=== PATIENT | female | born 1950 | race Caucasian/White ===

== ENCOUNTER 2017-01-09 14:37 | Outpatient (CLI) | payer BC ==
[~2017-01-09] VITALS: Ht 165.1 cm; Wt 65.3 kg
[2017-01-09 14:46] VITALS: BP 153/80
[2017-01-09] MEDS ORDERED: HYDR25TA4 PO (14:53)
[2017-01-09] MEDS ORDERED: ASPI-586 PO (14:53)
[2017-01-09] MEDS ORDERED: SIMV20TA3 PO (14:53)
[2017-01-09] MEDS ORDERED: OMEP40CA36 PO (14:53)
[2017-01-09 15:19] LABS: BASOPHILS # (AUTO) 0.1 10^3/uL (0.0-0.1); BASOPHILS % (AUTO) 1 % (0-10); EOSINOPHILS # (AUTO) 0.1 10^3/uL (0.0-0.3); EOSINOPHILS % (AUTO) 1 % (0-10); LYMPHOCYTES # (AUTO) 2.2 X 10^3 (1.0-4.0); LYMPHOCYTES % (AUTO) 30 % (12-44); MEAN CORPUSCULAR HEMOGLOBIN 29 PG (25-34); MEAN CORPUSCULAR HGB CONC 33 G/DL (32-36); MEAN CORPUSCULAR VOLUME 88 FL (80-99); MEAN PLATELET VOLUME 10.9 FL (7.4-10.4); MONOCYTES # (AUTO) 0.6 X 10^3 (0.0-1.0); MONOCYTES % (AUTO) 9 % (0-12); NEUTROPHILS # (AUTO) 4.3 X 10^3 (1.8-7.8); NEUTROPHILS % (AUTO) 59 % (42-75); PLATELET COUNT 346 10^3/uL (130-400); RED BLOOD COUNT 4.69 10^6/uL (4.35-5.85); WHITE BLOOD COUNT 7.3 10^3/uL (4.3-11.0)
[2017-01-09 15:45] LABS: ANION GAP 10 MMOL/L (5-14); BLOOD UREA NITROGEN 11 MG/DL (7-18); BUN/CREATININE RATIO 17; CALCIUM 9.7 MG/DL (8.5-10.1); CARBON DIOXIDE 27 MMOL/L (21-32); CHLORIDE 103 MMOL/L (98-107); CREATININE SERUM 0.66 MG/DL (0.60-1.30); GFR ESTIMATED > 60; GLUCOSE 100 MG/DL (70-105); POTASSIUM 3.6 MMOL/L (3.6-5.0); SODIUM 140 MMOL/L (135-145)
== END 2017-01-09 15:10 | disposition home or self-care (01) ==
LOC: PREOP 14:37
PROVIDERS: ATTEND Surgery
DX: Z01.812 Encounter for preprocedural laboratory examination (principal); K43.9 Ventral hernia without obstruction or gangrene
CPT/HCPCS: 36415; 80048; 85025; 86850; 86900; 86901; 87081

== ENCOUNTER 2017-01-16 06:55 | Day surgery (SDC) | payer BC, OTHER ==
[~2017-01-16] VITALS: Ht 165.1 cm; Wt 65.3 kg
[~2017-01-16 06:55] MED LIST: ASPI-586 PO; HYDR25TA4 PO; OMEP40CA36 PO; SIMV20TA3 PO
[2017-01-16] MEDS ORDERED: FAMOTIDINE 20MG/2ML IV (PEPCID) IV ONE (07:15)
[2017-01-16] MEDS ORDERED: MIDAZOLAM 2 MG/2 ML (VERSED) VIAL IV ONE (07:15)
[2017-01-16] MEDS ORDERED: VASOPRESSIN INJECTION 20 UNIT/ML VIAL ONE (07:19)
[2017-01-16 07:20] VITALS: BP 151/70
[2017-01-16] MEDS ORDERED: LIDOCAINE/EPI 1%-1:200,000 (XYLOCAINE) 30 ML VIAL ONE (07:20)
[2017-01-16] MEDS ORDERED: NS (IVPB) 100 ML ONE (07:20)
[2017-01-16] MEDS: LACTATED RINGERS 1,000 ML IV PRN ×2 (07:29→11:27)
[2017-01-16] MEDS ORDERED: CLINDAMYCIN 900 MG/NS 50 ML IVPB IV ONE ×2 (07:30)
--- NOTE | 2017-01-16 08:58 | History & Physical-Surgical ---
HPO-Surgical History of Present Illness Chief Complaint: Vaginal bulg Diagnosis/Surgical Indication: incarcerated ventral hernia, grade 3 rectocele Procedure: LAPAROSCOPIC INCISIONAL/VENTRAL HERNIA REPAIR WITH MESH PLACEMENT, POSSIBLE OPEN, POSTERIOR COLPORHAPHY Date of Surgery: Jan 16, 2017 Weight (Pounds): 144 Weight (Ounces): 0.0 Height (Feet): 5 Height (Inches): 5.00 Allergies and Home Medications Allergies Coded Allergies: Penicillins (Verified Allergy, Unknown, HIVES, 01/09/17) Sulfa (Sulfonamide Antibiotics) (Verified Allergy, Unknown, HIVES, 01/09/17 ) Home Medications Aspirin 81 Mg Tablet.dr, 81 MG PO DAILY, (Reported) Hydrochlorothiazide 25 Mg Tablet, 25 MG PO DAILY, (Reported) Omeprazole 40 Mg Capsule.dr, 40 MG PO DAILY, (Reported) Simvastatin 20 Mg Tablet, 20 MG PO HS, (Reported) Past Hdymrtm-Qydzag-Shdqjt Hx Patient Social History Alcohol Use: Occasionally Uses Recreational Drug Use: No Smoking Status: Former Smoker Former Smoker, Quit: Jan 09, 2014 Recent Foreign Travel: No Contact w/other who traveled: No Recent Hopitalizations: No Recent Infectious Disease Expo: No Immunizations Up To Date Date of Pneumonia Vaccine: Jan 09, 2011 Seasonal Allergies Seasonal Allergies: Yes Surgeries Bladder Surgery, Hysterectomy Neurological TIA Reproductive System SCANNER OPERATOR History: Hysterectomy Gastrointestinal Abdominal Hernia Musculoskeletal Arthritis Exam Vital Signs Vital Signs 01/16/17 01/16/17 07:20 07:40 Temp 97.9 Pulse 64 Resp 18 B/P (MAP) 151/70 Pulse Ox 97 O2 Delivery Room Air Capillary Refill : General Appearance: Alert, Oriented X3 HEENT: Atraumatic Respiratory: Clear to Auscultation Cardiovascular: Regular Rate Abdominal: Normal Bowel Sounds Extremities: No Clubbing, No Cyanosis Skin: No Significant Lesion Neuro: Normal Speech Psych/Mental Status: Mental Status NL CRUZSARKIS Everton PAREKH Jan 16, 2017 08:58
[2017-01-16] MEDS ORDERED: DEXAMETHASONE 10 MG/ML (DECADRON) 1 ML VIAL ONE ×2 (09:02→10:43)
[2017-01-16] MEDS ORDERED: fentaNYL INJECTION 250 MCG/5 ML AMP ONE (09:02)
[2017-01-16] MEDS ORDERED: SEVOFLURANE (ULTANE) 15 ML INHAL SOLN ONE ×7 (09:02→12:24)
[2017-01-16] MEDS ORDERED: LACTATED RINGERS 1,000 ML IV ONE ×2 (09:02→10:43)
[2017-01-16] MEDS ORDERED: ROCURONIUM 50 MG/5 ML (ZEMURON) VIAL IV ONE (09:02)
[2017-01-16] MEDS ORDERED: MIDAZOLAM 2 MG/2 ML (VERSED) VIAL ONE ×2 (09:02→10:44)
[2017-01-16] MEDS ORDERED: ONDANSETRON 4 MG/2 ML (SDV) Z0FRAN ONE ×2 (09:02→10:43)
[2017-01-16] MEDS ORDERED: proPOfol 200 MG/20 ML (DIPRIVAN) VIAL IV ONE (09:02)
[2017-01-16] MEDS ORDERED: LIDOCAINE PF 2% 5 ML (XYLOCAINE) VIAL ONE (09:02)
--- NOTE | 2017-01-16 09:21 | Progress Note-Pre Operative ---
Pre-Operative Progress Note H&P Reviewed The H&P was reviewed, patient examined and no changes noted. Time Seen by Provider: 09:16 Date H&P Reviewed: Jan 16, 2017 Time H&P Reviewed: 09:18 Pre-Operative Diagnosis: Ventral hernia ANKUR VITAL DO Jan 16, 2017 09:21
[2017-01-16] MEDS ORDERED: ESTRADIOL VAGINAL CREAM 42.5 GM (ESTRACE) VG ONE (10:12)
[2017-01-16] MEDS ORDERED: fentaNYL INJECTION 100 MCG/2 ML AMP ONE ×2 (10:44→12:04)
[2017-01-16] MEDS ORDERED: morphine INJ 10 MG/ML 1ML (SYR OR VIAL) ONE (12:15)
[2017-01-16] MEDS ORDERED: CHLORASEPTIC LOZENGE MM PRN (13:00)
[2017-01-16] MEDS ORDERED: ANTACID SUSP 30 ML UDC (MYLANTA) PO PRN (13:00)
[2017-01-16] MEDS ORDERED: SIMETHICONE 80 MG (MYLICON) CHEW PO PRN (13:00)
[2017-01-16] MEDS ORDERED: DOCUSATE SODIUM 100 MG (COLACE) CAP PO PRN (13:00)
[2017-01-16] MEDS ORDERED: ZOLPIDEM 5 MG (AMBIEN) TAB PO PRN (13:00)
--- NOTE | 2017-01-16 13:03 | Progress Note-Post Operative ---
Post-Operative Progess Note Surgeon (s)/Music Copyist (s) Surgeon SARKIS ARROYO DO Music Copyist: none Pre-Operative Diagnosis Grade 3 Rectocele Post-Operative Diagnosis same Procedure & Operative Findings Date of Procedure 01/16/17 Procedure Performed/Findings Posterior colporraphy Fluids: 2L LR UOP: 700 mL clear EBL min Dr. Bell completed his portion of the procedure then I continued as planned. Patient was placed in dorsal lithotomy position, prepped and draped in the normal fashion. An upside down triangle is made on the perineum, the base of which is at 6 oclock going down the mucocutaneous junction. I remove the cutaneous tissues after injecting the subq with 20 mu vasopressin in 100 ml NS. This helps with hydrodissection and hemostasis. I then isolate the entire rectocele and make an eliptical incision around it to the depth of the submucosa. I then dissect bluntly the mucosa off of the submucosa, exposing the underlying tissue involved with in the rectocele. I then close the defect using 3-0 vicryl in a running locking fashion, this plicates the rectovaginal fascia and reduces the rectocele. After this is done I repair the perineum in the same fashion as a episiotomy after placing a 2-0 vicryl crown stitch which re-enforces the perineal body. A qiu catheter from the previous procedure is left in place. The vagina is then packed with premarin soak vaginal packing. Patient tolerated the procedure well and is taken to recovery in stable condition. Lap and sponge count is correct/instrument count is correct as well. Anesthesia Type GETA Estimated Blood Loss Estimated blood loss (mL): min Specimens/Packing Specimens Removed none SARKIS ARROYO DO Jan 16, 2017 13:03
[2017-01-16] MEDS ORDERED: HYDROmorphone (DILAUDID) 2 MG/ML VIAL IVP PRN (13:15)
[2017-01-16] MEDS ORDERED: ONDANSETRON 4 MG/2 ML (SDV) Z0FRAN IVP PRN (13:15)
[2017-01-16] MEDS: morphine INJ 10 MG/ML 1ML (SYR OR VIAL) IVP PRN ×2 (13:16→13:20)
[2017-01-16] MEDS: KETOROLAC 30 MG/ML VIAL IV PRN ×2 (13:36→19:59)
--- NOTE | 2017-01-16 14:14 | Progress Note-Post Operative ---
Post-Operative Progess Note Surgeon (s)/Supervisor Fabrication (s) Surgeon ANKUR VITAL DO Supervisor Fabrication: Choco Pre-Operative Diagnosis Incisional/Vental hernia incarcerated Post-Operative Diagnosis Same, plus small UH Procedure & Operative Findings Date of Procedure 01/16/17 Procedure Performed/Findings Lap Ventral/Inc herniarraphy with mesh placement Anesthesia Type GET Estimated Blood Loss Estimated blood loss (mL): scant Specimens/Packing Specimens Removed hernia contents ANKUR VITAL DO Jan 16, 2017 14:14
[2017-01-16 14:20] VITALS: BP 123/65
[2017-01-16] MEDS: HYDROcodone/APAP 7.5 MG/325 MG (LORTAB, LORCET PLUS) TABLET PO PRN (14:52)
[2017-01-16] MEDS ORDERED: PATIENT MAY USE OWN MEDS, ALL MC SCH (16:15)
[2017-01-16 17:37] VITALS: BP 126/72
[2017-01-16] MEDS: LACTATED RINGERS 1,000 ML IV SCH (19:46)
[2017-01-16] MEDS: ONDANSETRON 4 MG/2 ML (SDV) Z0FRAN IV PRN (20:30)
[2017-01-16 20:40] VITALS: BP 113/63
[2017-01-16] MEDS ORDERED: SIMvastatin 40 MG (ZOCOR) TAB PO SCH (21:00)
[2017-01-16] MEDS ORDERED: SIMvastatin 20 MG (ZOCOR) TAB PO SCH (21:00)
[2017-01-17 00:42] VITALS: BP 146/82
[2017-01-17] MEDS: ONDANSETRON 4 MG/2 ML (SDV) Z0FRAN IV PRN ×2 (00:52→09:52)
[2017-01-17] MEDS: LACTATED RINGERS 1,000 ML IV SCH ×2 (03:30→08:26)
--- NOTE | 2017-01-17 04:16 | OPERATIVE REPORT ---
DATE OF SERVICE: 01/16/2017 PREOPERATIVE DIAGNOSES: Incisional ventral hernia. POSTOPERATIVE DIAGNOSES: 1. Incarcerated incisional ventral hernia. 2. Small umbilical hernia, also incarcerated. PROCEDURE: Laparoscopic ventral herniorrhaphy with mesh placement. SURGEON: Ankur Bell DO. HUMID SYSTEM OPERATOR: Geoff Wilhelm DO. ANESTHESIA: General endotracheal tube. SPECIMEN: Hernia contents. BLOOD LOSS: Scant. FLUIDS: Per anesthesia. POSTOPERATIVE CONDITION: Stable. INDICATION FOR PROCEDURE: The patient is a 66-year-old female who has been having some abdominal pain, diagnosed with an incisional ventral hernia and she wanted to get this repaired at the same time she another procedure performed by the FINISH MACHINE TENDER surgeon. FINDINGS: The patient had a small, incarcerated incisional ventral hernia. Also found to have a small incarcerated umbilical hernia repaired at the same time. PROCEDURE NOTE: After informed consent was obtained, the patient was brought to the operating room, placed on the table in supine position. She was sterilely prepped and draped in normal fashion. Local lidocaine was used to infiltrate the skin in left upper quadrant. made an incision with a #11 blade, carried down through the skin into the subcutaneous tissue, then deepened down to the subcutaneous tissue with Bovie electrocautery down to the fascia. Fascia incised with Bovie electrocautery then bluntly spread this apart and then spread the muscle apart with the posterior fascia and then bluntly entered the abdomen and placed an 11 mm trocar port under direct visualization. Created pneumoperitoneum and then placed 2 more ports in a normal fashion using local lidocaine, 11 blade for stab incision and the VersaStep system, all done under direct visualization, one in the left lower quadrant, one in the right mid abdomen at about the height of the umbilicus. Upon entry noted fat stuck up into the small incisional hernia, took a picture of this and then carefully with a LigaSure started coming across the fat clamping, coagulating and transecting and then pulling this out of the hernia the small fascial defect. Once this was freed up then freed up some of the rest of the preperitoneal fat until I created a good space for our mesh. I also took down the falciform ligament just a little bit. Once we had freed this up, I elected to use a 15 x 10 cm Echo Bard mesh. Placed this into the abdomen, made a small stab incision above the umbilicus, used the Derek-Maksim to grab the catheter pulled this up through the abdominal wall and then blew up the balloon and held this in place and then started tacking with a Securestrap. Tacked it at 12 o'clock, 9 o'clock, 6 o'clock and 3 o'clock positions and in between at about 1 cm spots to hold this up in place. I pulled the balloon out and then tacked a few more in the middle using all 25 Securestrap absorbable vera. Mesh appeared to be in good place, I let out some of the pneumoperitoneum and the mesh still continued to stay pretty flat, just a few ripples. It looked good at this point. I then removed all ports under direct visualization and allowed the pneumoperitoneum to escape. Closed the left upper quadrant incision closing the peritoneum with a 3-0 Vicryl fbreim-fq-czgnp suture then closed the anterior fascia with an 0 Vicryl tedbqk-rx-bvcwp suture. Copiously irrigated the incision with normal saline and then closed the 2 small 5 mm incisions with a single interrupted 4-0 undyed Monocryl subcuticular stitch. Closed the left upper quadrant incision with 3 interrupted 4-0 undyed Monocryl subcuticular stitches. Area was cleaned and dried and Dermabond placed. The patient was kept in the room for the FINISH MACHINE TENDER surgeon's case. She tolerated the procedure well. Sponge and needle counts correct at the end of the case. Dr. Wilhelm assisted in this case in identifying anatomy, holding anatomy out of the way, making incisions as well as closing the incisions. Job ID: [id number] DocumentID: [id number] Dictated Date: 01/16/2017 14:18:52 Instrument Designer Date: 01/17/2017 04:15:33 Dictated By: ANKUR BELL DO
[2017-01-17 06:15] VITALS: BP 114/63
[2017-01-17] MEDS ORDERED: IBUPROFEN 600 MG (MOTRIN) TAB PO PRN (07:00)
[2017-01-17 08:10] VITALS: BP 116/69
[2017-01-17] MEDS: OMEPRAZOLE 40 MG CAPSULE PO SCH ×2 (08:17→11:20)
[2017-01-17] MEDS ORDERED: HYDROCHLOROTHIAZIDE 25 MG (HCTZ) TAB PO SCH (09:00)
[2017-01-17] MEDS ORDERED: FAMOTIDINE 20MG/2ML IV (PEPCID) IVP ONE (09:45)
--- NOTE | 2017-01-17 09:54 | Discharge Inst-Women's Service ---
Discharge Inst-Women's Serv Depart Medication/Instructions New, Converted or Re-Newed RX: RX on Chart Consults/Follow Up Additional Follow Up: Yes Orders/Referrals Dr. Arroyo in 4-5 weeks Activity Activity: Activity as Tolerated Driving Instructions: No Driving for 1 Week NO SMOKING: NO SMOKING Nothing Inside Vagina: No Douching, No [place], No Tampons Diet Discharge Diet: No Restrictions Symptoms to Report to : Bleeding Excessive, Pain Increased, Fever Over 101 Degrees F, Vaginal Bleeding Increase, Questions/Concerns For Any Problems or Questions: Contact Your Physician Skin/Wound Care Bathing Instructions: Shower (x 2 weeks) SARKIS ARROYO DO Jan 17, 2017 9:54 am
[2017-01-17] MEDS ORDERED: IBUP-1773 PO (09:55)
[2017-01-17] MEDS ORDERED: HYDR-3816 PO (09:55)
[2017-01-17] MEDS ORDERED: DOCU100C37 PO (09:55)
[2017-01-17] MEDS ORDERED: SIME80TA16 PO (09:55)
[2017-01-17] MEDS: HYDROcodone/APAP 7.5 MG/325 MG (LORTAB, LORCET PLUS) TABLET PO PRN (10:34)
== END 2017-01-17 12:15 | disposition home or self-care (01) ==
LOC: SDC 06:55 → LDRP 14:30 → SDC 01-17 12:15
PROVIDERS: ATTEND Surgery
DX: K43.0 Incisional hernia with obstruction, without gangrene (principal); K42.0 Umbilical hernia with obstruction, without gangrene; N81.6 Rectocele; K21.9 Gastro-esophageal reflux disease without esophagitis; Z86.73 Personal history of transient ischemic attack (TIA), and cerebral infarction without residual deficits; Z87.891 Personal history of nicotine dependence; Z79.82 Long term (current) use of aspirin; Z79.899 Other long term (current) drug therapy
CPT/HCPCS: 94664

== ENCOUNTER → 2018-08-06 | Outpatient (CLI) | payer MEDICARE, BC ==
[~2018-08-06] MED LIST changes: +DOCU100C37 PO; +HYDR-34 PO; +IBUP-1773 PO; +SIME80TA16 PO
--- NOTE | 2018-08-06 19:53 | Diagnostic Imaging Report ---
INDICATION: Multinodular goiter. TECHNIQUE: Grayscale sonographic images of the thyroid gland. CORRELATION STUDY: There are no current prior studies for comparison purposes. FINDINGS: RIGHT LOBE: 4.2 x 2.0 x 1.4 cm. Heterogeneous echotexture throughout the right lobe. There is a hypoechoic nodule but it appears to be solid with a few punctate calcifications within the mid aspect, 1.0 x 0.5 x 0.8 cm. Hypoechoic nodule in right lobe is 4 x 3 x 4 mm. An additional solid-appearing nodule is present, measuring 7 x 6 x 7 mm. LEFT LOBE: 4.1 x 2.0 x 1.2 cm cm. Diffusely heterogeneous echotexture is present. Solid nodule in left lobe is present, measuring 10 x 5 x 8 mm. Additional hypoechoic nodule 9 x 7 x 6 mm. Isthmus is heterogeneous in echotexture. IMPRESSION: Borderline enlarged thyroid gland with heterogeneous echotexture containing multiple nodules. Given the multiplicity, favors probable multinodular goiter. A definitive dominant asymmetric mass is not suggest at this time. Continued periodic survey followup assessment is, however, recommended. (Normal gland size: 4-5 x 2 x 2 cm) Dictated by: Dictated on workstation # [id number]
== END ==
LOC: RAD FS 16:36
PROVIDERS: ATTEND Otolaryngology Otolaryngology/Facial Plastic Surgery
DX: E04.2 Nontoxic multinodular goiter (principal)
CPT/HCPCS: 76536

== ENCOUNTER 2018-11-02 05:36 | Outpatient (CLI) | payer MEDICARE, BC ==
[~2018-11-02] VITALS: Ht 165.1 cm; Wt 65.3 kg
== END 2018-11-02 10:46 | disposition home or self-care (01) ==
LOC: PREOP 05:36
PROVIDERS: ATTEND Surgery
DX: Z01.818 Encounter for other preprocedural examination (principal)

== ENCOUNTER 2018-11-09 06:43 | Day surgery (SDC) | payer BC, MEDICARE ==
[~2018-11-09] VITALS: Ht 165.1 cm; Wt 65.3 kg
--- OUTSIDE RECORDS SUMMARY | 2018-11-09 06:46 | XMS REPORT | Continuity of Care Document ---
Author Organization Unknown Address Unknown Allergies Active Description Code Type Severity Reaction Onset Reported/Identified Relationship to Patient Clinical Status Yes Penicillins [id number] Drug Allergy Unknown HIVES 01/09/2017 Yes Sulfa (Sulfonamide Antibiotics) [id number] Drug Allergy Unknown HIVES 01/09/2017 Yes Penicillins [id number] Drug Allergy Severe HIVES, CONFUSIO 11/02/2018 Yes Sulfa (Sulfonamide Antibiotics) [id number] Drug Allergy Mild HIVES 11/02/2018 Medications There is no data. Problems Date Dx Coded Attending Type Code Diagnosis Diagnosed By 01/09/2017 ANKUR VITAL DO, Ot K43.9 VENTRAL HERNIA WITHOUT OBSTRUCTION OR GA 01/09/2017 ANKUR VITAL DO, Ot Z01.812 ENCOUNTER FOR PREPROCEDURAL LABORATORY E 01/10/2017 ANKUR VITAL DO, Ot K43.9 VENTRAL HERNIA WITHOUT OBSTRUCTION OR GA 01/10/2017 ANKUR VITAL DO, Ot Z01.812 ENCOUNTER FOR PREPROCEDURAL LABORATORY E 01/17/2017 ANKUR VITAL DO, Ot K21.9 GASTRO-ESOPHAGEAL REFLUX DISEASE WITHOUT 01/17/2017 ANKUR VITAL DO, Ot K42.0 UMBILICAL HERNIA WITH OBSTRUCTION, WITHO 01/17/2017 ANKUR VITAL DO, Ot K43.0 INCISIONAL HERNIA WITH OBSTRUCTION, WITH 01/17/2017 ANKUR VITAL DO Ot N81.6 RECTOCELE 01/17/2017 ANKUR VITAL DO, Ot Z79.82 MCC (CURRENT) USE OF ASPIRIN 01/17/2017 ANKUR VITAL DO, Ot Z79.899 OTHER MCC (CURRENT) DRUG THERAPY 01/17/2017 ANKUR VITAL DO, Ot Z86.73 PRSNL HX OF TIA (TIA), AND CEREB INFRC W 01/17/2017 ANKUR VITAL DO, Ot Z87.891 PERSONAL HISTORY OF NICOTINE DEPENDENCE 01/22/2017 DELMAN DO, ANKUR B Ot K21.9 GASTRO-ESOPHAGEAL REFLUX DISEASE WITHOUT 01/22/2017 DELMAN DO, ANKUR B Ot K42.0 UMBILICAL HERNIA WITH OBSTRUCTION, WITHO 01/22/2017 DELMAN DO, ANKUR B Ot K43.0 INCISIONAL HERNIA WITH OBSTRUCTION, WITH 01/22/2017 DELMAN DO, ANKUR B Ot N81.6 RECTOCELE 01/22/2017 ZAHRAA PAREKH ANKUR B Ot Z79.82 SUPERINTENDENT LAUNDRY (CURRENT) USE OF ASPIRIN 01/22/2017 ZAHRAA DO ANKUR B Ot Z79.899 OTHER SUPERINTENDENT LAUNDRY (CURRENT) DRUG THERAPY 01/22/2017 DELBOUCHRA DO, ANKUR B Ot Z86.73 PRSNL HX OF TIA (TIA), AND CEREB INFRC W 01/22/2017 AYDIN VITAL DOIC B Ot Z87.891 PERSONAL HISTORY OF NICOTINE DEPENDENCE 01/24/2017 NUHABOUCHRA DO ANKUR B Ot K21.9 GASTRO-ESOPHAGEAL REFLUX DISEASE WITHOUT 01/24/2017 DELMAN DO, ANKUR B Ot K42.0 UMBILICAL HERNIA WITH OBSTRUCTION, WITHO 01/24/2017 ZAHRAA DO, ANKUR B Ot K43.0 INCISIONAL HERNIA WITH OBSTRUCTION, WITH 01/24/2017 NUHABOUCHRA DO, ANKUR B Ot N81.6 RECTOCELE 01/24/2017 ZAHRAA PAREKH ANKUR B Ot Z79.82 SUPERINTENDENT LAUNDRY (CURRENT) USE OF ASPIRIN 01/24/2017 ZAHRAA PAREKH ANKUR B Ot Z79.899 OTHER SUPERINTENDENT LAUNDRY (CURRENT) DRUG THERAPY 01/24/2017 AYDIN VITAL DOIC B Ot Z86.73 PRSNL HX OF TIA (TIA), AND CEREB INFRC W 01/24/2017 ANKUR VITAL DO B Ot Z87.891 PERSONAL HISTORY OF NICOTINE DEPENDENCE 08/07/2018 ZEE BARRERA, SARKIS P Ot E04.2 NONTOXIC MULTINODULAR GOITER 11/02/2018 SARKIS KOCH MD Ot E04.2 NONTOXIC MULTINODULAR GOITER 11/02/2018 ANKUR VITAL DO B Ot Z01.818 ENCOUNTER FOR OTHER PREPROCEDURAL EXAMIN 11/05/2018 SARKIS KOCH MD Ot E04.2 NONTOXIC MULTINODULAR GOITER Procedures There is no data. Results Test Result Range Complete blood count (CBC) with automated white blood cell (WBC) differential - 01/09/17 15:05 Blood leukocytes automated count (number/volume) 7.3 10*3/uL 4.3-11.0 Blood erythrocytes automated count (number/volume) 4.69 10*6/uL 4.35-5.85 Venous blood hemoglobin measurement (mass/volume) 13.8 g/dL 11.5-16.0 Blood hematocrit (volume fraction) 41 % 35-52 Automated erythrocyte mean corpuscular volume 88 [foz_us] 80-99 Automated erythrocyte mean corpuscular hemoglobin (mass per erythrocyte) 29 pg 25-34 Automated erythrocyte mean corpuscular hemoglobin concentration measurement (mass/volume) 33 g/dL 32-36 Automated erythrocyte distribution width ratio 13.0 % 10.0- 14.5 Automated blood platelet count (count/volume) 346 10*3/uL 130-400 Automated blood platelet mean volume measurement 10.9 [foz_us] 7.4-10.4 Automated blood neutrophils/100 leukocytes 59 % 42-75 Automated blood lymphocytes/100 leukocytes 30 % 12-44 Blood monocytes/100 leukocytes 9 % 0-12 Automated blood eosinophils/100 leukocytes 1 % 0-10 Automated blood basophils/100 leukocytes 1 % 0-10 Blood neutrophils automated count (number/volume) 4.3 10*3 1.8-7.8 Blood lymphocytes automated count (number/volume) 2.2 10*3 1.0-4.0 Blood monocytes automated count (number/volume) 0.6 10*3 0.0- 1.0 Automated eosinophil count 0.1 10*3/uL 0.0-0.3 Automated blood basophil count (count/volume) 0.1 10*3/uL 0.0-0.1 Whole blood basic metabolic panel - 01/09/17 15:05 Serum or plasma sodium measurement (moles/volume) 140 mmol/L 135-145 Serum or plasma potassium measurement (moles/volume) 3.6 mmol/L 3.6-5.0 Serum or plasma chloride measurement (moles/volume) 103 mmol/L 98-107 Carbon dioxide 27 mmol/L 21-32 Serum or plasma anion gap determination (moles/volume) 10 mmol/L 5-14 Serum or plasma urea nitrogen measurement (mass/volume) 11 mg/dL 7-18 Serum or plasma creatinine measurement (mass/volume) 0.66 mg/dL 0.60-1.30 Serum or plasma urea nitrogen/creatinine mass ratio 17 NRG Serum or plasma creatinine measurement with calculation of estimated glomerular filtration rate > NRG Serum or plasma glucose measurement (mass/volume) 100 mg/dL 70-105 Serum or plasma calcium measurement (mass/volume) 9.7 mg/dL 8.5-10.1 Blood type T Indirect antibody screen panel - 01/09/17 15:05 ABO+Rh group AP NRG Transfusion band number TNP NRG Blood group antibody screen NEGATIVE NRG Methicillin resistant Staphylococcus aureus (MRSA) screening culture - 01/09/17 15:05 Methicillin resistant Staphylococcus aureus (MRSA) screening culture NEG NRG Blood type T Indirect antibody screen panel - 01/16/17 07:19 ABO+Rh group AP NRG Transfusion band number [id number] NRG Blood group antibody screen NEGATIVE NRG TSH w/ FREE T4 - 08/06/18 16:23 TSH 1.88 mIU/L 0.40-4.50 T4, FREE 1.2 ng/dL 0.8-1.8 LIPID PANEL - 10/16/18 08:45 CHOLESTEROL, TOTAL 165 mg/dL <200 HDL CHOLESTEROL 64 mg/dL >50 TRIGLYCERIDES 93 mg/dL <150 LDL-CHOLESTEROL 82 mg/dL (calc) NRG CHOL/HDLC RATIO 2.6 (calc) <5.0 NON HDL CHOLESTEROL 101 mg/dL (calc) <130 CMP - 10/16/18 08:45 GLUCOSE 87 mg/dL 65-99 UREA NITROGEN (BUN) 9 mg/dL 7-25 CREATININE 0.60 mg/dL 0.50-0.99 eGFR NON-AFR. [place] 95 mL/min/1.73m2 > OR=60 eGFR 110 mL/min/1.73m2 > OR=60 BUN/CREATININE RATIO NOT APPLICABLE (calc) 6-22 SODIUM 142 mmol/L 135-146 POTASSIUM 4.2 mmol/L 3.5-5.3 CHLORIDE 103 mmol/L 98-110 CARBON DIOXIDE 29 mmol/L 20-32 CALCIUM 9.9 mg/dL 8.6-10.4 PROTEIN, TOTAL 6.5 g/dL 6.1-8.1 ALBUMIN 4.3 g/dL 3.6-5.1 GLOBULIN 2.2 g/dL (calc) 1.9-3.7 ALBUMIN/GLOBULIN RATIO 2.0 (calc) 1.0-2.5 BILIRUBIN, TOTAL 0.4 mg/dL 0.2-1.2 ALKALINE PHOSPHATASE 87 U/L 33-130 AST 16 U/L 10-35 ALT 16 U/L 6-29 CBC w/MANUAL DIFF - 10/16/18 08:45 WHITE BLOOD CELL COUNT 6.8 Thousand/uL 3.8-10.8 RED BLOOD CELL COUNT 4.74 Million/uL 3.80-5.10 HEMOGLOBIN 13.8 g/dL 11.7-15.5 HEMATOCRIT 42.2 % 35.0-45.0 MCV 89.0 fL 80.0-100.0 MCH 29.1 pg 27.0-33.0 MCHC 32.7 g/dL 32.0-36.0 RDW 12.7 % 11.0-15.0 PLATELET COUNT 363 Thousand/uL 140-400 MPV 11.1 fL 7.5-12.5 ABSOLUTE NEUTROPHILS 3135 cells/uL 5992-2391 ABSOLUTE MONOCYTES 537 cells/uL 200-950 ABSOLUTE EOSINOPHILS 231 cells/uL 15-500 ABSOLUTE BASOPHILS 150 cells/uL 0-200 NEUTROPHILS 46.1 % NRG LYMPHOCYTES 39.3 % NRG MONOCYTES 7.9 % NRG EOSINOPHILS 3.4 % NRG BASOPHILS 2.2 % NRG ABSOLUTE BAND NEUTROPHILS 75 cells/uL 0-750 ABSOLUTE LYMPHOCYTES 2672 cells/uL 850-3900 BAND NEUTROPHILS 1.1 % NRG PLATELET ESTIMATION ADEQUATE ADEQUATE COMMENT(S) NRG Encounters ACCT No. Visit Date/Time Discharge Status Pt. Type Provider Facility Loc./Unit Complaint [id number] 10/22/2018 15:30:00 10/22/2018 23:59:59 CLS Outpatient [facility] [id number] 10/16/2018 09:00:00 Document Registration [id number] 08/06/2018 16:15:00 Document Registration [id number] 11/02/2018 05:36:00 11/02/2018 10:46:00 DIS Outpatient ANKUR VITAL DO [facility] PREOP COLONOSCOPY/EGD [id number] 08/06/2018 16:36:00 08/06/2018 23:59:59 CLS Outpatient ZEE BARRERA, SARKIS Samaniego [facility] RAD FS MULTI NODULAR GOITER [id number] 01/16/2017 06:55:00 01/17/2017 12:15:00 DIS Outpatient ANKUR VITAL DO [facility] VENTRAL HERNIA, GRADE 3 PORLAPSE [id number] 01/09/2017 14:37:00 01/09/2017 15:10:00 DIS Outpatient ANKUR VITAL DO [facility] PREOP LAPARSCOPIC VENTRAL HERNIA REPAIR [id number] 11/09/2018 08:00:00 PEN Preadmit ANKUR VITAL DO [facility] ENDO SCREENING/REFLUX
[2018-11-09] MEDS ORDERED: LACTATED RINGERS 1,000 ML IV ONE (07:01)
[2018-11-09] MEDS ORDERED: PROPOFOL INJECTION 50 ML IV ONE (07:12)
[2018-11-09] MEDS ORDERED: MIDAZOLAM 2 MG/2 ML (VERSED) VIAL ONE (07:12)
[2018-11-09] MEDS ORDERED: LACTATED RINGERS 1,000 ML IV STA (07:25)
[2018-11-09 07:30] VITALS: BP 153/88
[2018-11-09] MEDS ORDERED: HURRICAINE EXT TUBE (BENZOCAINE) XX PRN (07:30)
--- NOTE | 2018-11-09 08:23 | Progress Note-Pre Operative ---
Pre-Operative Progress Note H&P Reviewed The H&P was reviewed, patient examined and no changes noted. Time Seen by Provider: 08:15 Date H&P Reviewed: Nov 09, 2018 Time H&P Reviewed: 08:16 Pre-Operative Diagnosis: Chronic Gastritis, Hx of Polyps ANKUR VITAL DO Nov 09, 2018 08:23
[2018-11-09 09:15] VITALS: BP 141/69
[2018-11-09] MEDS ORDERED: HURRICAINE EXT TUBE (BENZOCAINE) ONE (09:24)
--- NOTE | 2018-11-09 09:33 | Progress Note-Post Operative ---
Post-Operative Progess Note Surgeon (s)/Steno Typist (s) Surgeon ANKUR IVTAL DO Steno Typist: none Pre-Operative Diagnosis Chronic Gastritis, Hx of Polyps Post-Operative Diagnosis Gastritis Hiatal Hernia Sigmoid colon polyps Diverticula Internal hemorrhoids Procedure & Operative Findings Date of Procedure 11/09/18 Procedure Performed/Findings EGD with bx Colon with snare Colon with cold bx Anesthesia Type IV sedation by COMMERCIAL PROJECT MANAGER Estimated Blood Loss Estimated blood loss (mL): scant Specimens/Packing Specimens Removed Antral bx body of stomach bx GE jxn bx Sigmoid colon polyp x 2 ANKUR VITAL DO Nov 09, 2018 09:33
--- NOTE | 2018-11-09 09:35 | Endoscopy Discharge Instruct ---
Endo Procedure/Findings Findings 1.: Hiatal Hernia, Gastritis 2.: Polyp 3.: Diverticulosis 4.: Internal Hemorrhoids Discharge Instructions - Activity: You might feel a little sleepy until tomorrow. This is due to the medicine you received to relax you. Until tomorrow, you should: NOT drive a car, operate machinery or power tools. NOT drink any alcoholic beverages. NOT make any important decisions or sign importortant papers. Do not return to work until tomorrow, unless otherwise instructed. Resume previous activities tomorrow. Diet: Start by taking liquids. If you tolerate liquids, advance to solid food. make an appointment for one week Instructions: 1.: Colonscopy in 5 years, EGD in 3 years Notify Physician - If you experience excessive bleeding, unusual abdominal pain, fever, or chest pain, contact your doctor immediately. Follow-Up: - I have received and understand the above instructions and will call my doctor if I have any further questions. Patient Signature Date Nurse Signature Other (Relationship) ANKUR VITAL DO Nov 09, 2018 09:35
[2018-11-09 09:45] VITALS: BP 171/87
[2018-11-09 10:02] VITALS: BP 171/87
--- NOTE | 2018-11-09 14:54 | Anesthesia-General Post-Op ---
MAC Patient Condition Mental Status/LOC: Same as Preop Cardiovascular: Satisfactory Nausea/Vomiting: Absent Respiratory: Satisfactory Pain: Controlled Complications: Absent Post Op Complications Complications None Follow Up Care/Instructions Patient Instructions None needed. Anesthesiology Discharge Order Discharge Order Patient is doing well, no complaints, stable vital signs, no apparent adverse anesthesia problems. No complications reported per nursing. CAROLINA VILLEGAS CRNA Nov 09, 2018 14:54
--- NOTE | 2018-11-09 21:06 | OPERATIVE REPORT ---
DATE OF SERVICE: 11/09/2018 PREOPERATIVE DIAGNOSES: Chronic gastritis, history of polyps, colon polyps. POSTOPERATIVE DIAGNOSES: 1. Gastritis. 2. Hiatal hernia. 3. Sigmoid colon polyps. 4. Diverticula. 5. Internal hemorrhoids. PROCEDURE: 1. EGD with biopsy. 2. Colonoscopy with snare polypectomy. 3. Colonoscopy with cold biopsy. SURGEON: Carlos Bell DO INDUSTRIAL TRAINING SPECIALIST: None. ANESTHESIA: IV sedation by THERAPIST SPEECH. SPECIMEN: 1. One biopsy from the antrum, one biopsy from the body of stomach and one biopsy from the GE junction. 2. Sigmoid colon polyp x2. BLOOD LOSS: Scant. FLUIDS: Per anesthesia. POSTOPERATIVE CONDITION: Stable. INDICATION FOR PROCEDURE: The patient is a 68-year-old female who is having some chronic gastritis had a history of polyps and needs a workup for the gastritis and a repeat surveillance colonoscopy. FINDINGS: The patient had some gastritis. She also had noted a rather large hiatal hernia and then in the sigmoid colon saw one flat polyp and one large polyp also saw some diverticula and some internal hemorrhoids. PROCEDURE NOTE: After informed consent was obtained, the patient was brought to the endoscopy suite, placed in the bed in the left lateral decubitus position. She was administered IV sedation by the THERAPIST SPEECH who then monitored her vitals the entire time, heart rate, blood pressure, pulse ox and the scope was inserted down the mouth through the esophagus into the stomach, noted what looked like hiatal hernia and possibly some GE junction changes. Pushed to the antrum and through the pylorus, first and second portion of duodenum looked fine. Took a picture of this and then pulled back into the antrum, did a biopsy of the antrum as well as then did a biopsy of the body of the stomach, retroflexed the scope, saw large hiatal hernia, took a picture of this. Pulled into the esophagus and then did a biopsy of the GE junction then at this point pulled the scope up the esophagus and out the mouth. Switched scopes, switched gloves, went down below and started the colonoscopy. Pushed the scope in all the way to 150 cm, able to get to the cecum, took a picture of appendiceal orifice, noted the ileocecal valve and then slowly withdrew the scope insufflating to look circumferentially at the sweeney looking at the cecum, up the ascending colon to the hepatic flexure, then down the transverse colon, the splenic flexure, into the descending colon then into the sigmoid. In the sigmoid, saw small flat polyp, I elected to do a cold biopsy of this. Pulled back another couple inches and saw a large polyp. Wanted to remove this completely so used a snare polypectomy to remove this. Once this was removed, then continued down again saw diverticula in the sigmoid colon, took picture of these and then into the rectum, retroflexed in the rectal vault, saw some minimal internal hemorrhoids, took pictures and then removed the scope. The patient tolerated the procedure and she recovered in endoscopy suite. Job ID: [id number] DocumentID: [id number] Dictated Date: 11/09/2018 15:05:16 Lining Repairer Date: 11/09/2018 21:05:48 Dictated By: DO MELQUIADES MILES
== END 2018-11-09 09:55 | disposition home or self-care (01) ==
LOC: ENDO 06:43
PROVIDERS: ATTEND Surgery
DX: Z12.11 Encounter for screening for malignant neoplasm of colon (principal); D12.5 Benign neoplasm of sigmoid colon; K63.89 Other specified diseases of intestine; K29.50 Unspecified chronic gastritis without bleeding; K44.9 Diaphragmatic hernia without obstruction or gangrene; K57.30 Diverticulosis of large intestine without perforation or abscess without bleeding; K64.8 Other hemorrhoids; R79.1 Abnormal coagulation profile; I10 Essential (primary) hypertension; E78.00 Pure hypercholesterolemia, unspecified; Z87.891 Personal history of nicotine dependence; E78.5 Hyperlipidemia, unspecified; K21.9 Gastro-esophageal reflux disease without esophagitis; Z86.73 Personal history of transient ischemic attack (TIA), and cerebral infarction without residual deficits; Z79.82 Long term (current) use of aspirin; Z79.899 Other long term (current) drug therapy; Z79.01 Long term (current) use of anticoagulants; Z88.0 Allergy status to penicillin; Z88.2 Allergy status to sulfonamides

== ENCOUNTER → 2018-11-19 | Outpatient (CLI) | payer BC, MEDICARE ==
[2018-11-19 15:50] LABS: BILIRUBIN,URINE NEGATIVE (NEGATIVE); CLARITY,URINE CLEAR; COLOR,URINE YELLOW; GLUCOSE, URINE (UA) NEGATIVE (NEGATIVE); KETONES,URINE NEGATIVE (NEGATIVE); LEUKOCYTE ESTERASE ,URINE NEGATIVE (NEGATIVE); NITRITE,URINE NEGATIVE (NEGATIVE); PH,URINE 7 (5-9); PROTEIN,URINE NEGATIVE (NEGATIVE); UROBILINOGEN,URINE NORMAL (NORMAL)
[2018-11-19 16:03] LABS: BACTERIA,URINE NEGATIVE /HPF
== END ==
LOC: LAB 15:36
PROVIDERS: ATTEND Surgery
DX: R35.0 Frequency of micturition (principal)
CPT/HCPCS: 81000

== ENCOUNTER 2020-10-30 05:38 | Outpatient (CLI) | payer BC, MEDICARE ==
[~2020-10-30] VITALS: Ht 165.1 cm; Wt 65.8 kg
[~2020-10-30 05:38] MED LIST changes: +OMEP40CA27 PO; -OMEP40CA36 PO; +SIMV20TA26 PO; -SIMV20TA3 PO
[2020-10-30] MEDS ORDERED: CETI10TA23 PO (10:35)
[2020-10-30] MEDS ORDERED: ASPI-999 PO (10:35)
== END 2020-10-30 13:17 | disposition home or self-care (01) ==
LOC: PREOP 05:38
PROVIDERS: ATTEND Surgery
DX: Z01.818 Encounter for other preprocedural examination (principal)

== ENCOUNTER → 2020-11-03 | Outpatient (CLI) | payer MEDICARE ==
[~2020-11-03] MED LIST changes: +ASPI-999 PO; +CETI10TA23 PO
== END ==
LOC: LAB FS 10:00
PROVIDERS: ATTEND Surgery
DX: Z01.812 Encounter for preprocedural laboratory examination (principal); Z20.822 Contact with and (suspected) exposure to COVID-19; Z86.010 Personal history of colon polyps; Z87.19 Personal history of other diseases of the digestive system
CPT/HCPCS: 87636

== ENCOUNTER 2020-11-06 08:09 | Day surgery (SDC) | payer MEDICARE, OTHER ==
[~2020-11-06] VITALS: Ht 165.1 cm; Wt 65.8 kg
[2020-11-06 08:15] VITALS: BP 155/73
[2020-11-06] MEDS ORDERED: LACTATED RINGERS 1,000 ML IV ONE (08:21)
[2020-11-06] MEDS ORDERED: LACTATED RINGERS 1,000 ML IV STA (08:28)
[2020-11-06] MEDS ORDERED: HURRICAINE EXT TUBE (BENZOCAINE) XX PRN (08:30)
[2020-11-06] MEDS ORDERED: PROPOFOL INJECTION 50 ML IV ONE (08:59)
[2020-11-06 09:45] VITALS: BP 141/70
[2020-11-06 09:50] VITALS: BP 134/68
--- NOTE | 2020-11-06 09:50 | Progress Note-Post Operative ---
Post-Operative Progess Note Surgeon (s)/Inspector Electromechanical (s) Surgeon ANKUR VITAL DO Inspector Electromechanical: none Pre-Operative Diagnosis Chronic Gastritis, Hx of Polyps Post-Operative Diagnosis Gastritis Hiatal hernia - large Polyps diverticula int hemorrhoids Procedure & Operative Findings Date of Procedure 11/06/20 Procedure Performed/Findings After informed consent was obtained, the patient was brought to the endoscopy suite and placed in the bed in the left lateral decubitus position. She was administered IV sedation by the LIVESTOCK SLAUGHTERER, who then monitored her vitals the entire time, heart rate, blood pressure and pulse ox and the scope was inserted, started with the EGD, placed the scope down the mouth through the esophagus and into the remnant of the stomach and right into the small intestine. There was some mild inflammation of the antrum but duodenum looked ok, took a picture of this and then pulled back into the stomach, did a biopsy of the antrum and body of stomach. I also took a picture of the large hiatal hernia. Pulled the scope into the GE junction, did a biopsy and then suctioned the air out of the stomach and then pulled the scope up the esophagus and out the mouth. Switched camera, switched gloves, went down below, started the colonoscopy. Pushed all the way into about 140 cm to get all the way to cecum, took a picture of the appendiceal orifice, noted the ileocecal valve and then slowly withdrew the scope, insufflating to look circumferentially at the sweeney looking the cecum, up the ascending colon to the hepatic flexure, then down the transverse colon to the splenic flexure, into the descending colon, down into the sigmoid. In the sigmoid I saw diverticula and took pictures, I then found a small polyp and elected to do a cold biopsy. In the rectum I saw another small polyp and elected to do a cold biopsy. Finally retroflexed in the rectal vault, saw some minimal internal hemorrhoids and took a picture of this. The patient tolerated the procedure and she recovered in the endoscopy suite. Anesthesia Type IV sedation by LIVESTOCK SLAUGHTERER Estimated Blood Loss Estimated blood loss (mL): scant Specimens/Packing Specimens Removed antral bx body of stomach bx GE jxn bx Sigmoid polyp rectal polyp ANKUR VITAL DO Nov 06, 2020 09:50
--- NOTE | 2020-11-06 09:51 | Endoscopy Discharge Instruct ---
Endo Procedure/Findings Findings 1.: Hiatal Hernia, Gastritis 2.: Polyp 3.: Diverticulosis 4.: Internal Hemorrhoids Discharge Instructions - Activity: You might feel a little sleepy until tomorrow. This is due to the medicine you received to relax you. Until tomorrow, you should: NOT drive a car, operate machinery or power tools. NOT drink any alcoholic beverages. NOT make any important decisions or sign importortant papers. Do not return to work until tomorrow, unless otherwise instructed. Resume previous activities tomorrow. Diet: Start by taking liquids. If you tolerate liquids, advance to solid food. 1.: EGD in 3 years 2.: Colonscopy in 5 years Notify Physician - If you experience excessive bleeding, unusual abdominal pain, fever, or chest pain, contact your doctor immediately. ANKUR VITAL DO Nov 06, 2020 09:51
[2020-11-06 10:20] VITALS: BP 168/78
[2020-11-06 10:45] VITALS: BP 168/78
--- NOTE | 2020-11-06 11:35 | Anesthesia-General Post-Op ---
MAC Patient Condition Mental Status/LOC: Same as Preop Cardiovascular: Satisfactory Nausea/Vomiting: Absent Respiratory: Satisfactory Pain: Controlled Complications: Absent Post Op Complications Complications None Follow Up Care/Instructions Patient Instructions None needed. Anesthesiology Discharge Order Discharge Order Patient is doing well, no complaints, stable vital signs, no apparent adverse anesthesia problems. No complications reported per nursing. ADRIANNA MARROQUIN CRNA Nov 06, 2020 11:35
== END 2020-11-06 10:45 | disposition home or self-care (01) ==
LOC: ENDO 08:09
PROVIDERS: ATTEND Surgery
DX: D12.8 Benign neoplasm of rectum (principal); D12.5 Benign neoplasm of sigmoid colon; K29.50 Unspecified chronic gastritis without bleeding; K44.9 Diaphragmatic hernia without obstruction or gangrene; K57.30 Diverticulosis of large intestine without perforation or abscess without bleeding; K64.8 Other hemorrhoids; K21.9 Gastro-esophageal reflux disease without esophagitis; I10 Essential (primary) hypertension; Z88.0 Allergy status to penicillin; Z79.82 Long term (current) use of aspirin; Z79.899 Other long term (current) drug therapy; Z87.891 Personal history of nicotine dependence; Z86.73 Personal history of transient ischemic attack (TIA), and cerebral infarction without residual deficits; Z98.890 Other specified postprocedural states; Z88.2 Allergy status to sulfonamides; Z90.89 Acquired absence of other organs
CPT/HCPCS: 88305

== ENCOUNTER → 2021-09-11 | Outpatient (CLI) | payer MEDICARE ==
[~2021-09-11] MED LIST changes: -CETI10TA23 PO; +CETI10TA24 PO; -OMEP40CA27 PO; +OMEP40CA6 PO
--- NOTE | 2021-09-11 13:42 | Diagnostic Imaging Report ---
PROCEDURE: US carotid duplex, bilateral. TECHNIQUE: Multiple Real-time grayscale images were obtained over the carotid arteries in various projections, bilaterally. Additional spectral analysis and color Doppler duplex images were also obtained. INDICATION: Syncope. FINDINGS: There is mild plaquing in both distal common carotid arteries and carotid bulbs. Velocities appear to be fairly normal bilaterally. No velocity elevation or stenosis is seen. Both vertebral arteries show antegrade flow. IMPRESSION: Mild bilateral carotid plaque. There is no evidence of a hemodynamically significant stenosis. Parameters based on the consensus panel Roy-Scale and Doppler ultrasound criteria published March 2003, Radiology, Volume 229. DOPPLER (peak systolic velocity M/S Right Left CCA .80 1.05 ICA Proximal .76 .82 ICA Mid 1.11 1.04 ICA Distal 1.40 .91 RATIO 1.75 .99 ECA 1.18 1.76 VERT .74 .72 Dictated by: Dictated on workstation # [id number]
== END ==
LOC: CARD 11:30
PROVIDERS: ATTEND Family Medicine
DX: I65.23 Occlusion and stenosis of bilateral carotid arteries (principal)
CPT/HCPCS: 93306; 93880

== ENCOUNTER → 2022-06-04 | Outpatient (CLI) | payer MEDICARE ==
--- NOTE | 2022-06-04 17:18 | Diagnostic Imaging Report ---
CLINICAL HISTORY: Mid back pain. COMPARISON: None. TECHNIQUE: Two views of the thoracic spine. FINDINGS: There is no acute fracture or dislocation of the thoracic spine. Alignment is anatomic. The imaged joint spaces are preserved. Degenerative changes are present in the thoracic spine with disc osteophyte complexes. No suspicious focal osseous lesions. The included lungs are clear. IMPRESSION: 1. No acute fracture or dislocation in the thoracic spine. Dictated by: Dictated on workstation # [id number]
--- NOTE | 2022-06-04 17:24 | Diagnostic Imaging Report ---
CLINICAL HISTORY: Right shoulder pain. COMPARISON: None. TECHNIQUE: Four views of the right shoulder. FINDINGS: There is no acute fracture or dislocation of the right shoulder. Alignment is anatomic. Degenerative changes are present in the right acromioclavicular joint with marginal osteophytes and synovial hypertrophy. No focal osseous lesions are seen. The included right lung is clear. IMPRESSION: 1. No acute fracture or dislocation in the right shoulder. 2. Degenerative changes in the right acromioclavicular joint. Dictated by: Dictated on workstation # [id number]
== END ==
LOC: RAD FS 13:43
PROVIDERS: ATTEND Nurse Practitioner
DX: M54.6 Pain in thoracic spine (principal); M19.011 Primary osteoarthritis, right shoulder
CPT/HCPCS: 72070; 73030